=== PATIENT | female | born 1935 | race Caucasian/White ===

== ENCOUNTER 2021-05-03 00:51 | Emergency (ER) | payer OTHER ==
[~2021-05-03] VITALS: Ht 157.4 cm; Wt 68.0 kg
== END 2021-05-03 03:29 | disposition home or self-care (01) ==
LOC: ED 00:51
DX: S01.81XA Laceration without foreign body of other part of head, initial encounter (principal); S60.222A Contusion of left hand, initial encounter; W19.XXXA Unspecified fall, initial encounter; Y93.89 Activity, other specified; Y92.89 Other specified places as the place of occurrence of the external cause; Y99.8 Other external cause status